=== PATIENT | male | born 1965 | race Caucasian/White ===

== ENCOUNTER 2022-04-14 12:26 | Emergency (ER) | payer MEDICARE ==
[~2022-04-14] VITALS: Ht 180.3 cm; Wt 68.0 kg
[2022-04-14] MEDS ORDERED: TAMSULOSIN0.4 MG PO (12:34)
[2022-04-14 13:19] LABS: HEMATOCRIT 51.3 % (39.0-50.0); HEMOGLOBIN 16.8 g/dl (14.0-18.0); IMMATURE GRANULOCYTES 0.2 % (0.0-5.0); MEAN CORPUSCULAR HGB 33.7 pG CALC (26.0-32.0); MEAN CORPUSCULAR HGB CONC 32.7 g/dL CAL (32.0-36.0); NEUT# 2.35 thou/uL (1.82-7.42); RED BLOOD COUNT 4.98 mill/uL (4.70-6.10); RED CELL DISTRI WIDTH 15.6 % (11.5-15.5)
[2022-04-14 13:39] LABS: ALBUMIN 4.2 g/dL (3.2-5.0); ALKALINE PHOSPHATASE 108 u/l (38-126); ANION GAP 13 (6-22 (CALC)); BILIRUBIN, TOTAL 0.7 mg/dL (0.0-1.4); BUN 5 mg/dL (9-20); BUN/CREATININE RATIO 5 (12-20 (CALC)); CARBON DIOXIDE 27 mmol/l (22-30); CHLORIDE 100 mmol/l (95-108); GFR FOR AFR.AMER. > 60 ML/MIN (>=60 (CALC)); GFR OTHER RACES > 60 ML/MIN (>=60 (CALC)); POTASSIUM 5.1 mmol/l (3.5-5.1); SGOT/AST 35 u/l (17-59); SODIUM 135 mmol/l (137-146); TOTAL PROTEIN 7.9 g/dL (6.3-8.2)
[2022-04-14 14:54] VITALS: BP 105/69
[2022-04-14] MEDS ORDERED: VIBRAMYCIN100 M2 PO (14:56)
[2022-04-14] MEDS ORDERED: XARELTO STARTER1 TAB PO (14:56)
[2022-04-14] MEDS ORDERED: PREDNISONE10 MG PO (14:56)
== END 2022-04-14 14:55 | disposition left against medical advice (07) ==
LOC: ED 12:26
PROVIDERS: Nurse Practitioner
DX: L03.116 Cellulitis of left lower limb (principal); L03.115 Cellulitis of right lower limb; I82.412 Acute embolism and thrombosis of left femoral vein; L30.9 Dermatitis, unspecified; J43.9 Emphysema, unspecified; F17.200 Nicotine dependence, unspecified, uncomplicated; Z91.19 Patient's noncompliance with other medical treatment and regimen; Z87.820 Personal history of traumatic brain injury
CPT/HCPCS: J1650